=== PATIENT | female | born 1940 | race Caucasian/White ===

== ENCOUNTER → 2018-04-14 | Outpatient (CLI) | payer MEDICARE, BC ==
--- NOTE | 2018-04-15 09:45 | ECHOF ---
Referral Reason:I10 HTN / I34.0 Nonrheumatic mitral (valve) insuff MEASUREMENTS -------- HEIGHT: 165.1 cm WEIGHT: 67.6 kg BP: RVIDd: 3.0 cm (< 3.3) IVSd: 1.1 cm (0.6 - 1.1) LVIDd: 4.3 cm (3.9 - 5.3) LVPWd: 1.1 cm (0.6 - 1.1) IVSs: 1.3 cm LVIDs: 2.3 cm LVPWs: 1.6 cm LAESV Index (A-L): 32.36 ml/m Ao Diam: 3.0 cm (2.0 - 3.7) AV Cusp: 1.8 cm (1.5 - 2.6) LA Diam: 3.6 cm (2.7 - 3.8) MV EXCURSION: 15.618 mm (> 18.000) MV EF SLOPE: 61 mm/s (70 - 150) EPSS: 0.4 cm AV maxP.96 mmHg AV meanP.94 mmHg RAP: 5.00 mmHg RVSP: 25.12 mmHg FINDINGS -------- Sinus rhythm. This was a technically good study. The left ventricular size is normal. Left ventricular wall thickness is normal. Overall left vent ricular systolic function is normal with, an EF between 55 - 60 %. The right ventricle is normal in size and function. LA is midly dilated 29-33ml/m2. The right atrium is normal in size. Aortic valve is trileaflet and is mildly thickened. The mitral valve leaflets are mildly thickened. Moderate mitral regurgitation is present. Mild tricuspid regurgitation present. The right ventricular systolic pressure, as measured by Doppl er, is 25.12mmHg. Pulmonic valve appears structurally normal. The aortic root size is normal. Normal inferior vena cava with normal inspiratory collapse consistent with estimated right atrial pre ssure of 5 mmHg. The pericardium is normal. CONCLUSIONS -------- 1. Sinus rhythm. 2. This was a technically good study. 3. The left ventricular size is normal. 4. Left ventricular wall thickness is normal. 5. Overall left ventricular systolic function is normal with, an EF between 55 - 60 %. 6. The right ventricle is normal in size and function. 7. LA is midly dilated 29-33ml/m2. 8. The right atrium is normal in size. 9. Aortic valve is trileaflet and is mildly thickened. 10. The mitral valve leaflets are mildly thickened. 11. Moderate mitral regurgitation is present. 12. Mild tricuspid regurgitation present. 13. The right ventricular systolic pressure, as measured by Doppler, is 25.12mmHg. 14. Pulmonic valve appears structurally normal. 15. The aortic root size is normal. 16. Normal inferior vena cava with normal inspiratory collapse consistent with estimated right atrial pressure of 5 mmHg. 17. The pericardium is normal. AGED OR DISABLED CARER: Gi Torres RDCS
== END | disposition home or self-care (01) ==
LOC: RADECHMAIN 14:28
PROVIDERS: ATTEND Family Medicine
DX: I08.1 Rheumatic disorders of both mitral and tricuspid valves (principal); I10 Essential (primary) hypertension
CPT/HCPCS: 93306

== ENCOUNTER → 2018-06-13 | Outpatient (CLI) | payer MEDICARE, BC | LOC: LABWHC1 11:55 | PROVIDERS: ATTEND Family Medicine | DX: I67.1 Cerebral aneurysm, nonruptured (principal) | CPT/HCPCS: 36415; 82565; 84520 ==

== ENCOUNTER → 2019-12-22 | Outpatient (CLI) | payer MEDICARE, BC ==
[2019-12-22 09:49] LABS: Basophils % (A) 0 %; Eosinophils # (A) 0.1 k/uL (0-0.7); Eosinophils % (A) 1 %; HCT 46.8 % (34.0-46.0); HGB 15.1 gm/dL (11.4-16.0); Lymphocytes # (A) 1.2 k/uL (1.0-4.8); Lymphocytes % (A) 12 %; MCH 29.5 pg (25.0-35.0); MCHC 32.3 g/dL (31.0-37.0); MCV 91.4 fL (80.0-100.0); Mean Platelet Volume 7.5; Monocytes # (A) 0.6 k/uL (0-1.0); Monocytes % (A) 5 %; Neutrophils # (A) 8.7 k/uL (1.3-7.7); Neutrophils % (A) 81 %; Platelet Count 240 k/uL (150-450); RBC 5.12 m/uL (3.80-5.40); WBC 10.7 k/uL (3.8-10.6)
--- NOTE | 2019-12-22 09:54 | US ---
EXAMINATION TYPE: US carotid duplex BILAT DATE OF EXAM: 12/22/2019 COMPARISON: CT of the neck June 17, 2018 CLINICAL HISTORY: R09.89 labile hypertension. EXAM MEASUREMENTS: RIGHT: Peak Systolic Velocity (PSV) cm/sec ----- Right CCA: 58.1 ----- Right ICA: 55.9 ----- Right ECA: 67.9 ICA/CCA ratio: 1.0 RIGHT: End Diastole cm/sec ----- Right CCA: 16.1 ----- Right ICA: 11.1 ----- Right ECA: 14.5 LEFT: Peak Systolic Velocity (PSV) cm/sec ----- Left CCA: 57.2 ----- Left ICA: 58.7 ----- Left ECA: 67.1 ICA/CCA ratio: 1.0 LEFT: End Diastole cm/sec ----- Left CCA: 16.2 ----- Left ICA: 16.8 ----- Left ECA: 8.8 VERTEBRALS (direction of flow): Right Vertebral: Antegrade Left Vertebral: Antegrade Rhythm: Normal Murray scale images show mild peripheral hyperechoic plaque in the proximal left internal carotid arter y just past carotid bulb. Velocity measurements and ratios remain within normal limits bilaterally. Incidental finding of 1.4cm thyroid nodule. Biopsied 2016. IMPRESSION: No hemodynamically significant stenosis seen in either internal carotid artery. Findin gs correlate with 2018 CT neck study. Criteria for Assigning % of Stenosis / Diameter reduction (Estimation based on the indirect measurements of the internal carotid artery velocities (ICA PSV). 1. Normal (no stenosis)=ICA PSV < 125 cm/s: ratio < 2.0: ICA EDV<40 cm/s. 2. Less than 50% stenosis=ICA PSV < 125 cm/s: ratio < 2.0: ICA EDV<40 cm/s. 3. 50 to 69% stenosis=ICA PSV of 125 to 230 cm/s: ration 2.0 ? 4.0: ICA EDV 40-100 cm/s. 4. Greater than 70% stenosis to near occlusion= ICA PSV > 230 cm/s: ratio > 4.0: ICA EDV > 100 cm/s. 5. Near occlusion= ICA PSV velocities may be low or undetectable: variable ratio and ICA EDV. 6. Total occlusion=unable to detect flow.
--- NOTE | 2019-12-22 09:57 | US ---
EXAMINATION TYPE: US renal artery duplex complete DATE OF EXAM: 12/22/2019 COMPARISON: MRI lumbar spine March 28, 2016 CLINICAL HISTORY: R09.89 labile hypertension. MEASUREMENTS: RENAL SIZE: Rt Kidney: 9.3 x 3.6 x 4.5cm Lt Kidney: 9.6 x 5.1 x 4.2cm RESISTANCE INDEX Right: 0.67 Left: 0.69 RA/AO RATIO (< 3.5 ) Right: 1.7 Left: 1.9 RA VELOCITY ( < 180 cm/s) Right: 131 cm/s Left: 134cm/s Incidental finding of gallstones. No aneurysmal change of visualized abdominal aorta is seen through the bifurcation. There are small m obile gallstones and/or gallbladder sludge redemonstrated in the gallbladder. Kidney sizes are symmetric and felt within normal limits with some increased cortical echogenicity. N o suspicious masses seen on images saved. No hydronephrosis noted. Incidental liver is heterogeneousl y hyperechoic consistent with diffuse fatty infiltration. Arterial measurements of the bilateral single renal arteries show no suspicious elevated velocity or elevated resistive index suggests clinically significant focal renal artery stenosis. IMPRESSION: No vascular ultrasound evidence for significant focal renal artery stenosis bilaterally
[2019-12-22 11:38] LABS: Erythrocyte Sedimentation Rate 18 mm/hr (0-20)
== END | disposition home or self-care (01) ==
LOC: RADUSWWP 07:37
PROVIDERS: ATTEND Family Medicine
DX: R09.89 Other specified symptoms and signs involving the circulatory and respiratory systems (principal); R68.83 Chills (without fever); R53.81 Other malaise; B99.9 Unspecified infectious disease
CPT/HCPCS: 85025; 85652; 86038; 86140; 87040; 87086; 93880; 93975

== ENCOUNTER → 2020-04-26 | Outpatient (CLI) | payer MEDICARE, BC ==
--- NOTE | 2020-04-26 15:32 | BD ---
EXAMINATION TYPE: Axial Bone Density DATE OF EXAM: 04/26/2020 COMPARISON: NONE CLINICAL HISTORY: Height: 63.5 IN Weight: 152 LBS FRAX RISK QUESTIONS: Secondary Osteoporosis: 3. Menopause before 45: TOTAL HYST AGE 46 RISK FACTORS HISTORY OF: Active: YES Postmenopausal woman: TOTAL HYST AGE 46 Take estrogen and/or progesterone medications: NOT NOW How lon YEARS MEDICATIONS: Additional Medications: VIT D, BLOOD PRESSURE MEDS, DIURETIC, TOPROL, ASPIRIN EXAM MEASUREMENTS: Bone mineral densitometry was performed using the [employer]. Bone mineral density as measured about the Lumbar spine is: ----- L1-L4(G/cm2): 1.210 T Score Values are as follows: ----- L2: -0.7 ----- L3: 0.5 ----- L4: 0.8 ----- L1-L4: -0.3 Bone mineral density BASELINE Bone mineral density about the R hip (g/cm2): 0.816 Bone mineral density about the L hip (g/cm2): 0.931 T Score values are as follows: -----R Neck: -1.6 -----L Neck: -0.8 -----R Total: -1.5 -----L Total: -0.7 Bone mineral density BASELINE IMPRESSION: Osteopenia (T Score between -2.5 and -1). There is slightly increased risk of fracture and the patient may be considered for treatment. Re-Screen 2-5 years. NOTE: T-SCORE=SD OF THE YOUNG ADULT MEAN.
== END | disposition home or self-care (01) ==
LOC: RADBDWWP 11:11
PROVIDERS: ATTEND Family Medicine
DX: Z13.820 Encounter for screening for osteoporosis (principal); M85.80 Other specified disorders of bone density and structure, unspecified site
CPT/HCPCS: 77080

== ENCOUNTER → 2021-06-09 | Outpatient (CLI) | payer MEDICARE, BC ==
--- NOTE | 2021-06-09 21:17 | CT ---
EXAMINATION TYPE: CT angio head neck DATE OF EXAM: 06/09/2021 HISTORY: headache, ear pain, head pressure COMPARISON: None CT DLP: 1516.5 mGycm. Automated Exposure Control for Dose Reduction was Utilized. TECHNIQUE: CTA scan of the neck is performed without and with IV Contrast, patient injected with 65c c mL of Isovue 370, axial images are obtained, coronal and sagittal reformatted images are reviewed. 3D reconstructed images are created on an independent workstation and reviewed. FINDINGS: Lung apices are clear. There is biapical pleural thickening. There is a right-sided thyroid nodule measuring 1.2 cm. There is mild atherosclerotic plaque at the carotid bifurcation on the left. No evidence of significa nt stenosis bilaterally. Hypertrophic and degenerative changes of the spine. Aortic arch demonstrates mild atherosclerotic disease. No significant stenosis of the great vessels. Left vertebral artery dominant. Vertebral basilar and carotid systems are patent. No sizable aneurysm or vascular malformation. Posterior cerebral arteries appear to be patent. Hyperostosis of the frontal bone. The ventricles are midline. No evidence of acute hemorrhage or mass effect. Orbits are symmetric. IMPRESSION: 1. Mild atherosclerotic plaque left carotid bifurcation with no significant stenosis bilaterally. 2. Right-sided 1.2 cm thyroid nodule. 3. Intracranial vasculature is patent with no sizable aneurysm or vascular malformation. NASCET criteria was used in interpretation of this exam?
== END | disposition home or self-care (01) ==
LOC: RADCTMAIN 15:53
PROVIDERS: ATTEND Internal Medicine
DX: I65.22 Occlusion and stenosis of left carotid artery (principal); E04.1 Nontoxic single thyroid nodule
CPT/HCPCS: 70496; 70498; Q9967

== ENCOUNTER → 2021-12-28 | Outpatient (CLI) | payer MEDICARE, BC ==
--- NOTE | 2021-12-28 14:55 | MR ---
EXAMINATION TYPE: MR iac wo/w con DATE OF EXAM: 12/28/2021 COMPARISON: CTA had June 09, 2021 HISTORY: Ringing in ears, more so right side TECHNIQUE: Multiplanar, multisequence images of the brain and brainstem is performed without and with IV contras t, utilizing 6.5 mL intravenous Gadavist . Acoustic nerve disorder protocol FINDINGS: Diffusion weighted images demonstrate no evidence of a recent infarct or other diffusion ab normality. The ventricular system and cisternal spaces are normal in size and appearance. The brai n volume is age appropriate. Some scattered small foci of T2 hyperintensity are seen throughout the w leopoldo matter bilaterally. Approximately 40 scattered lesions are seen. Lesions are nonspecific in appe arance and distribution. Midline structures demonstrate normal morphology. The craniocervical junction appears within normal limits. Normal vascular flow voids are present. Left lens is flattened suggesting prior cataract surg kwaku. Visualized paranasal sinuses are clear. Nasal septum is deviated to left of midline. No suspicious fluid signal in the mastoid air cells bilaterally. No suspicious enhancing cerebellopon kim angle mass is identified bilaterally. Vestibulocochlear complexes are symmetric and felt within normal limits. IMPRESSION: Mild to moderate nonspecific white matter changes favored product of chronic small vessel ischemic change in patient this age. No suspicious findings seen to account for patient's symptoms o f tinnitus greater in the right ear.
== END | disposition home or self-care (01) ==
LOC: RADMRIMAIN 07:57
PROVIDERS: ATTEND Otolaryngology
DX: I67.82 Cerebral ischemia (principal)
CPT/HCPCS: 70553; A9585

== ENCOUNTER 2023-06-04 13:04 | Day surgery (SDC) | payer MEDICARE, BC ==
[~2023-06-04 13:04] MED LIST: LACTATED RINGERS 1,000 ML IV SCH; LIDOCAINE 1% (10MG/ML) FOR IV START INTRADERMA PRN
[2023-06-04] MEDS ORDERED: PROPOFOL 10 MG/ML 20 ML VIAL IV ONE (13:52)
[2023-06-04 14:09] VITALS: RESP 16; TEMP 97.2
--- NOTE | 2023-06-04 14:12 | P.GSHP ---
History of Present Illness H&P Date: 06/04/23 Chief Complaint: Rectal bleeding 82-year-old female here for colonoscopy. Last colonoscopy 8 years ago. Patient with history of previous sigmoid resection for diverticulitis. Family history of colon cancer in a grandparent. Patient 2 weeks ago had a few days of heavy rectal bleeding. No black stools. No pain. No cramps. 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 IRREGULAR HR. DJD BACK. SKIN CA-BASAL CELL, diverticulitis History of Any Multi-Drug Resistant Organisms: None Reported Past Surgical History: Adenoidectomy, Bowel Resection, Heart Catheterization, Hysterectomy, Tonsillectomy Additional Past Surgical History / Comment(s): SIGMOID COLECTOMY Past Anesthesia/Blood Transfusion Reactions: Postoperative Nausea & Vomiting (PO NV) Additional Past Anesthesia/Blood Transfusion Reaction / Comment(s): FAMILY HX PONV Smoking Status: Former smoker - Past Family History Father Family Medical History: Cancer Mother Family Medical History: Cancer Medications and Allergies Home Medications Medication Instructions Recorded Confirmed Type Aspirin 325 mg PO DAILY 03/17/14 06/04/23 History Candesartan Cilexetil 8 mg PO QAM 03/17/14 06/04/23 History Hydrochlorothiazide 25 mg PO QAM 03/17/14 06/04/23 History Rosuvastatin [Crestor] 10 mg PO QAM 05/31/15 06/04/23 History Metoprolol Succinate [Toprol XL] 75 mg PO BID 06/27/16 06/04/23 History Cholecalciferol (Vitamin D3) 1,000 mcg PO DAILY 05/31/23 06/04/23 History [Vitamin D3] Cyanocobalamin (Vitamin B-12) 1,000 mcg PO DAILY 05/31/23 06/04/23 History [Vitamin B-12] Allergies Allergy/AdvReac Type Severity Reaction Status Date / Time meperidine HCl [From Demerol] Allergy ITCHING, Verified 06/04/23 13:37 NAUSEA & VOMITING morphine Allergy Unknown Verified 06/04/23 13:37 Childhood hydromorphone HCl AdvReac NAUSEA & Verified 06/04/23 13:37 [From Dilaudid] VOMITING-TOLERATES IF ANTIEMETIC GIVEN PRIOR Surgical - Exam Vital Signs Temp Pulse Resp BP Pulse Ox 97.2 F L 72 16 162/72 96 06/04/23 13:40 06/04/23 13:40 06/04/23 13:40 06/04/23 13:40 06/04/23 13:40 Physical exam: General: Well-developed, well-nourished HEENT: Normocephalic, sclerae nonicteric Abdomen: Nontender, nondistended Extremities: No edema Neuro: Alert and oriented Assessment and Plan (1) Rectal bleeding Narrative/Plan: Will proceed with colonoscopy at this time Current Visit: Yes Status: Acute Code(s): K62.5 - HEMORRHAGE OF ANUS AND RECTUM SNOMED Code(s): 36327617
--- NOTE | 2023-06-04 14:25 | P.PCN ---
Date of Procedure: 06/04/23 Procedure(s) Performed: PREOPERATIVE DIAGNOSIS: Rectal bleeding POSTOPERATIVE DIAGNOSIS: Transverse colon polyp, rectal polyp, diverticulosis PROCEDURE: Colonoscopy with snare polypectomy ANESTHESIA: MAC SURGEON: Rogerio Tavares M.D. SPECIMENS: Colon polyps ENDOSCOPIC PROCEDURE: The patient was placed on the endoscopy table in the left decubitus position. The Olympus colonoscope was inserted into the anus and passed under direct visualization to the base of the cecum. The appendiceal orifice was visualized. From that point the scope was slowly withdrawn inspecting all surfaces carefully. There were no neoplastic inflammatory or polypoid lesions throughout the cecum and ascending colon. In the transverse colon a small polyp was seen. This was removed using the snare with cautery technique. The remainder of the transverse and descending colon appeared normal. The colorectal anastomosis was widely patent. Just beyond the anastomosis there was another small polyp that was removed using the snare with cautery technique. The remainder of the rectum appeared normal. The patient had extensive diverticulosis. Digital rectal examination was normal. The patient was taken to the recovery room in stable condition per anesthesia guidelines. RECOMMENDATIONS: Await biopsy results. Source of bleeding likely diverticular. Continue diverticular diet.
[2023-06-04 14:55] VITALS: BP 133/77; PULSE 67
== END 2023-06-04 15:15 | disposition home or self-care (01) ==
LOC: ORWHC2ENDO 13:04
PROVIDERS: ATTEND Surgery
DX: D12.3 Benign neoplasm of transverse colon (principal); D12.8 Benign neoplasm of rectum; K21.9 Gastro-esophageal reflux disease without esophagitis; M19.90 Unspecified osteoarthritis, unspecified site; Z80.0 Family history of malignant neoplasm of digestive organs; I10 Essential (primary) hypertension; E78.5 Hyperlipidemia, unspecified; I48.91 Unspecified atrial fibrillation; Z88.5 Allergy status to narcotic agent; Z87.891 Personal history of nicotine dependence; Z90.49 Acquired absence of other specified parts of digestive tract; Z79.02 Long term (current) use of antithrombotics/antiplatelets; Z86.73 Personal history of transient ischemic attack (TIA), and cerebral infarction without residual deficits; Z79.82 Long term (current) use of aspirin; Z79.891 Long term (current) use of opiate analgesic; Z79.899 Other long term (current) drug therapy
CPT/HCPCS: 88305; 45385; J2704

== ENCOUNTER → 2024-09-02 | Day surgery (SDC) | payer MEDICARE, BC ==
--- NOTE | 2024-09-07 12:06 | MM ---
Reason for Exam: Post Procedure Mammogram. Risk Values: Jody 5 year model risk: 1.1%. NCI Lifetime model risk: 1.5%. Tissue Density: Left: The breasts are heterogeneously dense, which may obscure small masses. Pathology Description: Location: 2 o'clock. Marker Left Behind. Needle Type: Mammotome Cores: 5 Skin Nicks: 1 The procedure of ultrasound guided core biopsy was explained to the patient. Benefits, alternatives, and risks were discussed. An informed consent was then obtained. The patient was placed in supine positioning for imaging and for the procedure. The overlying skin was prepped and draped in usual sterile fashion. Lidocaine buffered with bicarbonate was used as anesthetic into the skin and subcutaneous tissue up to area of concern in the left breast. A juliocesar was made with surgical scalpel. Under ultrasound guidance, a 12-gauge vacuum assisted biopsy gun device was used to obtain 5 core samples. Following this, a biopsy clip was left in lesion. The patient tolerated the procedure well without any immediate complication. The patient was kept in the radiology department for short stay after the procedure and then discharged home in stable condition. Postprocedure mammogram: The patient was transferred to mammography for physician ordered post procedure mammogram for clip placement verification. Post procedure mammogram demonstrates appropriate placement of clip. Additional benign-appearing calcifications and surgical clip present. Impression: Successful, uncomplicated ultrasound guided core biopsy of area of concern in the left breast, full pathology results to follow. [facility], , 09/02/2024 2:37 PM. Pathology Results: Result: Benign, Fibrocystic change. Pathology and radiology were reviewed. Findings are concordant. LEFT BREAST, 2:00, ULTRASOUND GUIDED BIOPSY: Fibrocystic change with columnar cell change, focal microcalcification, chronic mastitis and fibrotic and scarred benign ductal cyst. Focal usual ductal hyperplasia. Mammary duct ectasia. Overall Assessment: Benign Assessment: MG diagnostic mammo LT wo CAD. - Left: Benign, BI-RAD 2. Management: Diagnostic Breast Ultrasound of the left breast in 6 months. Electronically signed and approved by: Rodrigo Woods DO
== END ==
LOC: RADUSWWP 12:40
PROVIDERS: ATTEND Surgery
DX: N60.42 Mammary duct ectasia of left breast (principal); N61.0 Mastitis without abscess; N60.02 Solitary cyst of left breast; L90.5 Scar conditions and fibrosis of skin; R92.8 Other abnormal and inconclusive findings on diagnostic imaging of breast
CPT/HCPCS: 88305; 77065; 19083; A4648